=== PATIENT | male | born 1960 | race Caucasian/White ===

== ENCOUNTER → 2020-05-10 | Day surgery (SDC) | payer MEDICARE, OTHER ==
[~2020-05-10] MED LIST: ABILIFY5 M1 PO; ABILIFY5 MG PO; ASPIRIN CHEWABL81 MG PO; ASPIRIN81 MG PO; ATORVASTATIN CA80 MG PO; AUGMENTIN 875-1 EACH PO; AZITHROMYCIN250 MG PO; BACLOFEN 10MG T10 MG PO; BRILINTA90 MG PO; BUSPIRONE HCL15 MG PO; CARAFATE1 GM PO; CEFDINIR300 MG PO; CIPRO500 MG PO; CLONAZEPAM0.5 MG PO; FLEXERIL5 MG PO; FLOMAX 0.4 MG0.4 MG PO; FLOMAX0.4 MG PO; IBUPROFEN600 MG PO; IBUPROFEN800 MG PO; ISOSORBIDE MONO60 M1 PO; ISOSORBIDE MONO60 MG PO; LOPRESSOR25 MG PO; MEDROL 4MG DOSEP4 MG PO; MOTRIN600 MG PO; NITROQUIK SL0.4 MG SL; NORCO 5-325 TA1 EACH PO; ONDANSETRON ODT4 MG SL; PLAVIX75 MG PO; PROTONIX 40MG T40 MG PO; PYRIDIUM200 M1 PO; PYRIDIUM200 MG PO; RANEXA500 MG PO; RANOLAZINE ER500 MG PO; RISPERIDOL PO; TAMSULOSIN HCL0.4 MG PO; TESSALON PERLE100 MG PO; TRAZODONE 100M100 MG PO; TRAZODONE 50MG50 MG PO; VENTOLIN HFA IN18 GM INH; VIBRAMYCIN100 MG PO; ZOFRAN4 M1 PO; ZOFRAN4 MG PO; ZOFRAN8 MG PO
== END | disposition home or self-care (01) ==
LOC: FAS 07:48
DX: Z12.11 Encounter for screening for malignant neoplasm of colon (principal); D12.2 Benign neoplasm of ascending colon; D12.3 Benign neoplasm of transverse colon; D12.5 Benign neoplasm of sigmoid colon; K31.89 Other diseases of stomach and duodenum; K29.80 Duodenitis without bleeding; K21.9 Gastro-esophageal reflux disease without esophagitis; F42.9 Obsessive-compulsive disorder, unspecified; F32.9 Major depressive disorder, single episode, unspecified; F41.9 Anxiety disorder, unspecified; J44.9 Chronic obstructive pulmonary disease, unspecified; I10 Essential (primary) hypertension; I25.10 Atherosclerotic heart disease of native coronary artery without angina pectoris; I25.2 Old myocardial infarction; E78.5 Hyperlipidemia, unspecified; Z86.010 Personal history of colon polyps; Z87.891 Personal history of nicotine dependence; Z79.02 Long term (current) use of antithrombotics/antiplatelets; Z79.82 Long term (current) use of aspirin; Z79.899 Other long term (current) drug therapy; Z95.5 Presence of coronary angioplasty implant and graft
CPT/HCPCS: 88305; 93005; J2405; J2550; J2704; J7120

== ENCOUNTER 2020-07-01 12:33 | Emergency (ER) | payer MEDICARE, OTHER ==
[~2020-07-01 12:33] MED LIST changes: -AUGMENTIN 875-1 EACH PO; -BACLOFEN 10MG T10 MG PO; -CIPRO500 MG PO; -ISOSORBIDE MONO60 M1 PO; -PYRIDIUM200 M1 PO; -PYRIDIUM200 MG PO; -ZOFRAN4 M1 PO
[2020-07-01 13:05] LABS: BASOPHIL 1.1 % (0-2); EOSINOPHIL 3.9 % (0-5); HCT 49.2 % (42.0-52.0); HGB 16.5 g/dl (13.2-18.0); MCH 33.3 pg (25.0-31.0); MCHC 33.5 g/dL (32.0-36.0); MCV 99.4 fL (78.0-100.0); MONOCYTE 7.2 % (0-12); MPV 9.3 fL (6.0-9.5); NEUTROPHIL 69.6 % (41-80); NRBC 0; PLT 169 K/uL (150-400); RBC 4.95 M/uL (4.70-6.00); RDW 12.2 % (11.5-14.0); WBC 8.4 K/uL (4.0-10.5)
[2020-07-01 13:18] LABS: INR 0.88 (0.9-1.2); PROTHROMBIN TIME 11.3 SECONDS (11.4-13.6); PTT 26.1 SECONDS (22.2-34.7)
[2020-07-01 13:32] LABS: ALBUMIN 3.8 g/dL (3.4-5.0); BILIRUBIN - TOTAL 0.3 mg/dL (0.2-1.0); BUN/CREAT RATIO (CALC) 9.4 RATIO; CREATININE 1.17 mg/dL (0.67-1.17); GLOBULIN (CALCULATION) 2.7 g/dL; POTASSIUM 4.4 mmol/L (3.5-5.1); TOTAL PROTEIN 6.5 g/dL (6.4-8.2)
[2020-07-01 14:13] LABS: BILIRUBIN NEGATIVE (NEGATIVE); BLOOD NEGATIVE Ery/uL (NEGATIVE); CLARITY CLEAR (CLEAR); COLOR YELLOW (YELLOW); GLUCOSE (U) NORMAL (NORMAL); LEUKOCYTES TRACE Leu/uL (NEGATIVE); NITRITE NEGATIVE (NEGATIVE); PROTEIN NEGATIVE (NEGATIVE); UROBILINOGEN 0.2 mg/dL (0.2-1.0)
[2020-07-01 14:21] LABS: SQUAMOUS EPITHELIAL CELLS RARE; URINARY RBC RARE
[2020-11-27] MEDS ORDERED: NORCO 5-325 TA1 EACH PO (16:29)
[2020-11-28] MEDS ORDERED: LOPRESSOR25 MG PO (11:39)
== END 2020-07-01 16:10 | disposition home or self-care (01) ==
LOC: FER 12:33
PROVIDERS: Emergency Medicine; Nurse Practitioner Family
DX: R07.89 Other chest pain (principal); R06.02 Shortness of breath; R05 Cough; R11.0 Nausea; R42 Dizziness and giddiness; I10 Essential (primary) hypertension; E03.9 Hypothyroidism, unspecified; F17.210 Nicotine dependence, cigarettes, uncomplicated; Z79.899 Other long term (current) drug therapy
CPT/HCPCS: 36415; 71045; 80053; 81001; 84484; 85025; 85610; 85730; 87088; 93005; J2405; J7030

== ENCOUNTER 2020-09-15 14:33 | Emergency (ER) | payer MEDICARE, OTHER ==
[2020-09-15 16:09] LABS: BASOPHIL 0.7 % (0-2); EOSINOPHIL 1.3 % (0-5); HCT 48.7 % (42.0-52.0); MCH 32.3 pg (25.0-31.0); MCHC 34.9 g/dL (32.0-36.0); MCV 92.6 fL (78.0-100.0); MONOCYTE 7.7 % (0-12); MPV 9.5 fL (6.0-9.5); NEUTROPHIL 74.9 % (41-80); NRBC 0; PLT 185 K/uL (150-400); RBC 5.26 M/uL (4.70-6.00); RDW 12.8 % (11.5-14.0); WBC 9.8 K/uL (4.0-10.5)
[2020-09-15 16:12] LABS: BILIRUBIN NEGATIVE (NEGATIVE); BLOOD NEGATIVE Ery/uL (NEGATIVE); CLARITY CLEAR (CLEAR); COLOR YELLOW (YELLOW); GLUCOSE (U) NORMAL (NORMAL); LEUKOCYTES 1+ Leu/uL (NEGATIVE); NITRITE NEGATIVE (NEGATIVE); PROTEIN NEGATIVE (NEGATIVE); UROBILINOGEN 0.2 mg/dL (0.2-1.0)
[2020-09-15 16:27] LABS: BUN/CREAT RATIO (CALC) 13.1 RATIO; CREATININE 1.22 mg/dL (0.67-1.17); POTASSIUM 4.5 mmol/L (3.5-5.1)
[2020-09-15 16:30] LABS: AMORPHOUS URATES CRYSTALS TRACE; BACTERIA TRACE; SQUAMOUS EPITHELIAL CELLS RARE
[2020-09-15] MEDS ORDERED: VIBRAMYCIN100 MG PO (17:32)
[2020-09-15] MEDS ORDERED: ZOFRAN4 M1 PO (17:32)
[2020-11-27] MEDS ORDERED: NORCO 5-325 TA1 EACH PO (16:29)
[2020-11-28] MEDS ORDERED: LOPRESSOR25 MG PO (11:39)
== END 2020-09-15 18:00 | disposition home or self-care (01) ==
LOC: FER 14:33
PROVIDERS: Nurse Practitioner Family
DX: J18.9 Pneumonia, unspecified organism (principal); F17.210 Nicotine dependence, cigarettes, uncomplicated; Z79.899 Other long term (current) drug therapy
CPT/HCPCS: 36415; 71046; 80048; 81001; 85025; 87088; 93005; J0696; J1885; J2405; J7030

== ENCOUNTER 2020-09-28 11:12 | Emergency (ER) | payer MEDICARE, OTHER ==
[~2020-09-28 11:12] MED LIST changes: +ZOFRAN4 M1 PO
[2020-09-28 12:40] LABS: BASOPHIL 0.5 % (0-2); HCT 49.6 % (42.0-52.0); HGB 17.6 g/dl (13.2-18.0); LYMPHOCYTE 10.8 % (15-48); MCH 32.2 pg (25.0-31.0); MCHC 35.5 g/dL (32.0-36.0); MCV 90.7 fL (78.0-100.0); MONOCYTE 7.3 % (0-12); NEUTROPHIL 80.1 % (41-80); NRBC 0; PLT 249 K/uL (150-400); RBC 5.47 M/uL (4.70-6.00); RDW 12.9 % (11.5-14.0); WBC 14.6 K/uL (4.0-10.5)
[2020-09-28 12:47] LABS: ALBUMIN 4.2 g/dL (3.4-5.0); BILIRUBIN - TOTAL 1.2 mg/dL (0.2-1.0); BUN/CREAT RATIO (CALC) 18.9 RATIO; CREATININE 1.32 mg/dL (0.67-1.17); GLOBULIN (CALCULATION) 2.9 g/dL; POTASSIUM 4.5 mmol/L (3.5-5.1); TOTAL PROTEIN 7.1 g/dL (6.4-8.2)
[2020-11-27] MEDS ORDERED: NORCO 5-325 TA1 EACH PO (16:29)
[2020-11-28] MEDS ORDERED: LOPRESSOR25 MG PO (11:39)
== END 2020-09-28 14:35 | disposition home or self-care (01) ==
LOC: FER 11:12
PROVIDERS: Emergency Medicine
DX: F41.9 Anxiety disorder, unspecified (principal); R07.89 Other chest pain; I25.2 Old myocardial infarction; J44.9 Chronic obstructive pulmonary disease, unspecified; F17.210 Nicotine dependence, cigarettes, uncomplicated; Z95.5 Presence of coronary angioplasty implant and graft
CPT/HCPCS: 36415; 71045; 80053; 84484; 85025; 93005; J2060

== ENCOUNTER 2020-09-30 13:41 | Emergency (ER) | payer MEDICARE, OTHER ==
[2020-09-30 14:27] LABS: BILIRUBIN NEGATIVE (NEGATIVE); BLOOD 1+ Ery/uL (NEGATIVE); CLARITY CLEAR (CLEAR); COLOR YELLOW (YELLOW); GLUCOSE (U) NORMAL (NORMAL); LEUKOCYTES 2+ Leu/uL (NEGATIVE); NITRITE NEGATIVE (NEGATIVE); PROTEIN TRACE (LOW) mg/dL (NEGATIVE); pH 6.5 (5.0-9.0)
[2020-09-30 14:59] LABS: BASOPHIL 0.9 % (0-2); EOSINOPHIL 1.7 % (0-5); HCT 48.6 % (42.0-52.0); HGB 17.6 g/dl (13.2-18.0); LYMPHOCYTE 20.8 % (15-48); MCH 32.4 pg (25.0-31.0); MCHC 36.2 g/dL (32.0-36.0); MCV 89.3 fL (78.0-100.0); MONOCYTE 7.9 % (0-12); MPV 9.7 fL (6.0-9.5); NEUTROPHIL 68.4 % (41-80); NRBC 0; PLT 213 K/uL (150-400); RBC 5.44 M/uL (4.70-6.00); RDW 12.9 % (11.5-14.0); WBC 9.9 K/uL (4.0-10.5)
[2020-09-30 15:28] LABS: ALBUMIN 4.3 g/dL (3.4-5.0); BILIRUBIN - TOTAL 1.1 mg/dL (0.2-1.0); BUN/CREAT RATIO (CALC) 13.1 RATIO; CREATININE 1.3 mg/dL (0.67-1.17); GLOBULIN (CALCULATION) 2.6 g/dL; POTASSIUM 3.8 mmol/L (3.5-5.1); TOTAL PROTEIN 6.9 g/dL (6.4-8.2)
[2020-09-30] MEDS ORDERED: PYRIDIUM200 MG PO (16:06)
[2020-09-30] MEDS ORDERED: AUGMENTIN 875-1 EACH PO (16:06)
[2020-11-27] MEDS ORDERED: NORCO 5-325 TA1 EACH PO (16:29)
[2020-11-28] MEDS ORDERED: LOPRESSOR25 MG PO (11:39)
== END 2020-09-30 16:24 | disposition home or self-care (01) ==
LOC: FER 13:41
PROVIDERS: Nurse Practitioner Family
DX: N39.0 Urinary tract infection, site not specified (principal); I10 Essential (primary) hypertension; J44.9 Chronic obstructive pulmonary disease, unspecified; F17.210 Nicotine dependence, cigarettes, uncomplicated
CPT/HCPCS: 36415; 80053; 81001; 85025; 87088; 99284; J7030

== ENCOUNTER 2020-10-04 18:39 | Emergency (ER) | payer MEDICARE, OTHER ==
[~2020-10-04 18:39] MED LIST changes: +AUGMENTIN 875-1 EACH PO; +PYRIDIUM200 MG PO
[2020-10-04 19:59] LABS: BASOPHIL 0.7 % (0-2); EOSINOPHIL 2.3 % (0-5); HCT 49.1 % (42.0-52.0); HGB 17.4 g/dl (13.2-18.0); LYMPHOCYTE 19.3 % (15-48); MCH 32.5 pg (25.0-31.0); MCHC 35.4 g/dL (32.0-36.0); MCV 91.6 fL (78.0-100.0); MONOCYTE 8.8 % (0-12); MPV 9.6 fL (6.0-9.5); NEUTROPHIL 68.7 % (41-80); NRBC 0; PLT 224 K/uL (150-400); RBC 5.36 M/uL (4.70-6.00); RDW 12.9 % (11.5-14.0); WBC 11.6 K/uL (4.0-10.5)
[2020-10-04 20:22] LABS: ALBUMIN 3.9 g/dL (3.4-5.0); BILIRUBIN - TOTAL 0.7 mg/dL (0.2-1.0); BUN/CREAT RATIO (CALC) 10.5 RATIO; CREATININE 1.33 mg/dL (0.67-1.17); GLOBULIN (CALCULATION) 3.1 g/dL; POTASSIUM 3.7 mmol/L (3.5-5.1)
[2020-10-04] MEDS ORDERED: FLOMAX0.4 MG PO (22:08)
[2020-11-27] MEDS ORDERED: NORCO 5-325 TA1 EACH PO (16:29)
[2020-11-28] MEDS ORDERED: LOPRESSOR25 MG PO (11:39)
== END 2020-10-04 22:27 | disposition home or self-care (01) ==
LOC: FER 18:39
PROVIDERS: Emergency Medicine
DX: N40.1 Benign prostatic hyperplasia with lower urinary tract symptoms (principal); I10 Essential (primary) hypertension; J44.9 Chronic obstructive pulmonary disease, unspecified; F17.200 Nicotine dependence, unspecified, uncomplicated
CPT/HCPCS: 36415; 80053; 83690; 85025; J1885; J2405; Q9967

== ENCOUNTER 2020-10-08 22:16 | Day surgery (SDCO) | payer MEDICARE, OTHER ==
[~2020-10-08] VITALS: Ht 188 cm; Wt 90.0 kg
[2020-10-08 22:55] LABS: EOSINOPHIL 2.9 % (0-5); HCT 48.2 % (42.0-52.0); LYMPHOCYTE 21.3 % (15-48); MCH 32.5 pg (25.0-31.0); MCHC 35.3 g/dL (32.0-36.0); MCV 92.2 fL (78.0-100.0); MONOCYTE 8.7 % (0-12); MPV 9.6 fL (6.0-9.5); NEUTROPHIL 65.9 % (41-80); NRBC 0; PLT 199 K/uL (150-400); RBC 5.23 M/uL (4.70-6.00); RDW 12.7 % (11.5-14.0); WBC 11.5 K/uL (4.0-10.5)
[2020-10-08 23:14] LABS: INR 0.96 (0.9-1.2); PROTHROMBIN TIME 12.1 SECONDS (11.4-13.6)
[2020-10-08 23:15] LABS: D-DIMER 0.37 ug/mLFEU (0.00-0.41)
[2020-10-08 23:19] LABS: ALBUMIN 3.6 g/dL (3.4-5.0); BILIRUBIN - TOTAL 0.4 mg/dL (0.2-1.0); BUN/CREAT RATIO (CALC) 14.1 RATIO; CREATININE 1.42 mg/dL (0.67-1.17); GLOBULIN (CALCULATION) 2.9 g/dL; TOTAL PROTEIN 6.5 g/dL (6.4-8.2)
[2020-10-08 23:25] LABS: PRO-BNP 108 pg/mL (<125)
[2020-10-09 02:25] LABS: CORONAVIRUS 2019 SARS-COV-2 NEGATIVE (NEGATIVE); INFLUENZA A NAA NEGATIVE (NEGATIVE)
[2020-10-09 07:10] LABS: BASOPHIL 1.1 % (0-2); EOSINOPHIL 4.2 % (0-5); HCT 45.3 % (42.0-52.0); HGB 15.9 g/dl (13.2-18.0); LYMPHOCYTE 28.4 % (15-48); MCH 32.9 pg (25.0-31.0); MCHC 35.1 g/dL (32.0-36.0); MCV 93.6 fL (78.0-100.0); MONOCYTE 7.5 % (0-12); MPV 9.5 fL (6.0-9.5); NEUTROPHIL 58.6 % (41-80); NRBC 0; PLT 161 K/uL (150-400); RBC 4.84 M/uL (4.70-6.00); RDW 12.6 % (11.5-14.0); WBC 8.6 K/uL (4.0-10.5)
[2020-10-09 07:33] LABS: ALBUMIN 3.2 g/dL (3.4-5.0); BILIRUBIN - TOTAL 0.4 mg/dL (0.2-1.0); BUN/CREAT RATIO (CALC) 12.1 RATIO; CREATININE 1.24 mg/dL (0.67-1.17); GLOBULIN (CALCULATION) 2.3 g/dL; POTASSIUM 4.6 mmol/L (3.5-5.1); TOTAL PROTEIN 5.5 g/dL (6.4-8.2)
[2020-10-10 05:27] LABS: BASOPHIL 1.3 % (0-2); EOSINOPHIL 3.3 % (0-5); HCT 47.2 % (42.0-52.0); HGB 16.4 g/dl (13.2-18.0); LYMPHOCYTE 24.9 % (15-48); MCH 32.5 pg (25.0-31.0); MCHC 34.7 g/dL (32.0-36.0); MCV 93.5 fL (78.0-100.0); MONOCYTE 8.8 % (0-12); MPV 9.6 fL (6.0-9.5); NEUTROPHIL 61.4 % (41-80); NRBC 0; PLT 158 K/uL (150-400); RBC 5.05 M/uL (4.70-6.00); RDW 12.7 % (11.5-14.0); WBC 7.1 K/uL (4.0-10.5)
[2020-10-10 05:45] LABS: CREATININE 1.17 mg/dL (0.67-1.17); POTASSIUM 4.7 mmol/L (3.5-5.1)
[2020-10-10] MEDS ORDERED: ISOSORBIDE MONO60 M1 PO (10:15)
[2020-10-10] MEDS ORDERED: PROTONIX 40MG T40 MG PO (10:15)
[2020-10-10] MEDS ORDERED: BACLOFEN 10MG T10 MG PO (10:15)
[2020-10-10] MEDS ORDERED: PLAVIX75 MG PO (10:15)
[2020-11-27] MEDS ORDERED: NORCO 5-325 TA1 EACH PO (16:29)
[2020-11-28] MEDS ORDERED: LOPRESSOR25 MG PO (11:39)
== END 2020-10-10 10:45 | disposition home or self-care (01) ==
LOC: FER 22:16 → FTCU 10-09 01:18 → FMS 10-09 13:07
PROVIDERS: Emergency Medicine Emergency Medical Services; Internal Medicine; Nurse Practitioner; ADMIT Hospitalist
DX: I25.119 Atherosclerotic heart disease of native coronary artery with unspecified angina pectoris (principal); K29.70 Gastritis, unspecified, without bleeding; F41.0 Panic disorder [episodic paroxysmal anxiety]; I11.9 Hypertensive heart disease without heart failure; E78.5 Hyperlipidemia, unspecified; J44.9 Chronic obstructive pulmonary disease, unspecified; F17.210 Nicotine dependence, cigarettes, uncomplicated; K21.9 Gastro-esophageal reflux disease without esophagitis; F32.9 Major depressive disorder, single episode, unspecified; Z95.5 Presence of coronary angioplasty implant and graft; Z79.02 Long term (current) use of antithrombotics/antiplatelets; Z79.82 Long term (current) use of aspirin; Z79.899 Other long term (current) drug therapy; Z20.822 Contact with and (suspected) exposure to COVID-19
CPT/HCPCS: 36415; 71045; 80048; 80053; 83690; 83880; 84484; 85025; 85379; 85610; 85730; 93005; 94010; 94762; G0378; J1650; J2270; J2405; J7030; U0002

== ENCOUNTER 2020-10-18 13:06 | Emergency (ER) | payer MEDICARE, OTHER ==
[~2020-10-18 13:06] MED LIST changes: +BACLOFEN 10MG T10 MG PO; +ISOSORBIDE MONO60 M1 PO
[2020-10-18 13:33] LABS: BASOPHIL 0.3 % (0-2); EOSINOPHIL 1.7 % (0-5); HCT 44.5 % (42.0-52.0); HGB 15.4 g/dl (13.2-18.0); LYMPHOCYTE 11.2 % (15-48); MCH 32.1 pg (25.0-31.0); MCHC 34.6 g/dL (32.0-36.0); MCV 92.7 fL (78.0-100.0); MONOCYTE 7.7 % (0-12); MPV 9.1 fL (6.0-9.5); NEUTROPHIL 78.7 % (41-80); NRBC 0; PLT 219 K/uL (150-400); RDW 12.8 % (11.5-14.0); WBC 11.4 K/uL (4.0-10.5)
[2020-10-18 13:46] LABS: ALBUMIN 3.5 g/dL (3.4-5.0); BILIRUBIN - TOTAL 0.5 mg/dL (0.2-1.0); BUN/CREAT RATIO (CALC) 14.2 RATIO; CREATININE 1.41 mg/dL (0.67-1.17); GLOBULIN (CALCULATION) 2.8 g/dL; POTASSIUM 4.2 mmol/L (3.5-5.1); TOTAL PROTEIN 6.3 g/dL (6.4-8.2)
[2020-11-27] MEDS ORDERED: NORCO 5-325 TA1 EACH PO (16:29)
[2020-11-28] MEDS ORDERED: LOPRESSOR25 MG PO (11:39)
== END 2020-10-18 14:55 | disposition home or self-care (01) ==
LOC: FER 13:06
PROVIDERS: Emergency Medicine
DX: R07.9 Chest pain, unspecified (principal); I25.10 Atherosclerotic heart disease of native coronary artery without angina pectoris; F17.200 Nicotine dependence, unspecified, uncomplicated; Z95.5 Presence of coronary angioplasty implant and graft
CPT/HCPCS: 36415; 71045; 80053; 84484; 85025; 93005

== ENCOUNTER 2020-11-22 15:18 | Emergency (ER) | payer MEDICARE, OTHER ==
[2020-11-22 18:17] LABS: BASOPHIL 0.9 % (0-2); EOSINOPHIL 3.5 % (0-5); HCT 48.6 % (42.0-52.0); HGB 16.9 g/dl (13.2-18.0); LYMPHOCYTE 19.5 % (15-48); MCH 31.3 pg (25.0-31.0); MCHC 34.8 g/dL (32.0-36.0); MONOCYTE 6.6 % (0-12); MPV 8.6 fL (6.0-9.5); NEUTROPHIL 69.2 % (41-80); NRBC 0; PLT 190 K/uL (150-400); RDW 13.1 % (11.5-14.0); WBC 8.9 K/uL (4.0-10.5)
[2020-11-22 18:28] LABS: INR 0.98 (0.9-1.2); PROTHROMBIN TIME 12.4 SECONDS (11.8-13.4); PTT 26.3 SECONDS (24.4-34.7)
[2020-11-22 18:38] LABS: ALBUMIN 3.8 g/dL (3.4-5.0); BILIRUBIN - TOTAL 1.1 mg/dL (0.2-1.0); BUN/CREAT RATIO (CALC) 7.9 RATIO; CREATININE 1.14 mg/dL (0.67-1.17); GLOBULIN (CALCULATION) 3.1 g/dL; POTASSIUM 3.9 mmol/L (3.5-5.1); TOTAL PROTEIN 6.9 g/dL (6.4-8.2)
[2020-11-22 20:25] LABS: BILIRUBIN NEGATIVE (NEGATIVE); BLOOD 1+ Ery/uL (NEGATIVE); CLARITY CLEAR (CLEAR); COLOR YELLOW (YELLOW); GLUCOSE (U) NORMAL (NORMAL); LEUKOCYTES 1+ Leu/uL (NEGATIVE); NITRITE NEGATIVE (NEGATIVE); PROTEIN NEGATIVE (NEGATIVE); SPECIFIC GRAVITY 1.015 (1.001-1.030)
[2020-11-22 20:28] LABS: BACTERIA TRACE; CALCIUM OXALATE CRYSTALS MODERATE
[2020-11-22] MEDS ORDERED: VIBRAMYCIN100 MG PO (21:25)
[2020-11-23] MEDS ORDERED: CIPRO500 MG PO (16:55)
[2020-11-23] MEDS ORDERED: PYRIDIUM200 M1 PO (16:55)
[2020-11-27] MEDS ORDERED: NORCO 5-325 TA1 EACH PO (16:29)
[2020-11-28] MEDS ORDERED: LOPRESSOR25 MG PO (11:39)
== END 2020-11-22 21:25 | disposition home or self-care (01) ==
LOC: FER 15:18
PROVIDERS: Emergency Medicine Emergency Medical Services; Nurse Practitioner Family
DX: K21.9 Gastro-esophageal reflux disease without esophagitis (principal); F41.9 Anxiety disorder, unspecified; R07.89 Other chest pain; R00.0 Tachycardia, unspecified; R10.13 Epigastric pain; I25.2 Old myocardial infarction; I10 Essential (primary) hypertension; J44.9 Chronic obstructive pulmonary disease, unspecified; F17.210 Nicotine dependence, cigarettes, uncomplicated
CPT/HCPCS: 36415; 71045; 80053; 81001; 84484; 85025; 85610; 85730; 87088; 93005; 96372; J2060; J7030

== ENCOUNTER 2020-11-23 14:26 | Emergency (ER) | payer MEDICARE, OTHER ==
[2020-11-23 15:55] LABS: BILIRUBIN 1+ mg/dL (NEGATIVE); BLOOD TRACE-LYSED Ery/uL (NEGATIVE); CLARITY CLEAR (CLEAR); COLOR YELLOW (YELLOW); GLUCOSE (U) NORMAL (NORMAL); LEUKOCYTES 2+ Leu/uL (NEGATIVE); NITRITE NEGATIVE (NEGATIVE); PROTEIN TRACE (LOW) mg/dL (NEGATIVE); pH 7.5 (5.0-9.0)
[2020-11-23 16:09] LABS: BACTERIA TRACE; URINARY RBC RARE
[2020-11-23] MEDS ORDERED: PYRIDIUM200 M1 PO (16:55)
[2020-11-23] MEDS ORDERED: CIPRO500 MG PO (16:55)
[2020-11-27] MEDS ORDERED: NORCO 5-325 TA1 EACH PO (16:29)
[2020-11-28] MEDS ORDERED: LOPRESSOR25 MG PO (11:39)
== END 2020-11-23 17:09 | disposition home or self-care (01) ==
LOC: FER 14:26
PROVIDERS: Emergency Medicine
DX: N30.90 Cystitis, unspecified without hematuria (principal); J44.9 Chronic obstructive pulmonary disease, unspecified; F17.210 Nicotine dependence, cigarettes, uncomplicated; Z95.5 Presence of coronary angioplasty implant and graft; Z98.890 Other specified postprocedural states
CPT/HCPCS: 81001; 87088; 99283; J1885

== ENCOUNTER 2020-11-26 09:42 | Emergency (ER) | payer MEDICARE, OTHER ==
[~2020-11-26 09:42] MED LIST changes: +CIPRO500 MG PO; +PYRIDIUM200 M1 PO
[2020-11-26 10:11] LABS: BASOPHIL 0.8 % (0-2); EOSINOPHIL 2.1 % (0-5); HCT 50.2 % (42.0-52.0); HGB 17.6 g/dl (13.2-18.0); LYMPHOCYTE 28.9 % (15-48); MCH 31.9 pg (25.0-31.0); MCHC 35.1 g/dL (32.0-36.0); MCV 91.1 fL (78.0-100.0); MONOCYTE 8.8 % (0-12); MPV 8.7 fL (6.0-9.5); NEUTROPHIL 58.9 % (41-80); NRBC 0; PLT 231 K/uL (150-400); RBC 5.51 M/uL (4.70-6.00); WBC 9.7 K/uL (4.0-10.5)
[2020-11-26 10:36] LABS: ALBUMIN 3.7 g/dL (3.4-5.0); ALKALINE PHOSHATASE 89 U/L (46-116); ALT 73 U/L (16-63); AST 42 U/L (15-37); BILIRUBIN - TOTAL 0.7 mg/dL (0.2-1.0); BUN 6 mg/dL (7-18); BUN/CREAT RATIO (CALC) 5.1 RATIO; CHLORIDE 107 mmol/L (98-107); CO2 (BICARBONATE) 21 mmol/L (21-32); CREATININE 1.18 mg/dL (0.67-1.17); GLOBULIN (CALCULATION) 3.2 g/dL; GLUCOSE 110 mg/dL (74-106); POTASSIUM 3.9 mmol/L (3.5-5.1); TOTAL PROTEIN 6.9 g/dL (6.4-8.2)
[2020-11-26 10:39] LABS: ACETAMINOPHEN (TYLENOL) < 2.0 ug/mL (10.0-30.0)
[2020-11-27] MEDS ORDERED: NORCO 5-325 TA1 EACH PO (16:29)
[2020-11-28] MEDS ORDERED: LOPRESSOR25 MG PO (11:39)
== END 2020-11-26 12:10 | disposition left against medical advice (07) ==
LOC: FER 09:42
PROVIDERS: Emergency Medicine
DX: F10.129 Alcohol abuse with intoxication, unspecified (principal); I20.0 Unstable angina; S00.31XA Abrasion of nose, initial encounter; S00.81XA Abrasion of other part of head, initial encounter; J44.9 Chronic obstructive pulmonary disease, unspecified; F17.210 Nicotine dependence, cigarettes, uncomplicated; Y90.7 Blood alcohol level of 200-239 mg/100 ml; X58.XXXA Exposure to other specified factors, initial encounter; Z87.19 Personal history of other diseases of the digestive system; Z53.8 Procedure and treatment not carried out for other reasons
CPT/HCPCS: 36415; 70450; 80053; 84484; 85025; 93005; G0480; J7030

== ENCOUNTER 2021-02-04 21:09 | Emergency (ER) | payer MEDICARE, OTHER ==
[2021-02-04 21:50] LABS: BASOPHIL 0.8 % (0-2); EOSINOPHIL 2.7 % (0-5); HCT 51.1 % (42.0-52.0); HGB 18.5 g/dl (13.2-18.0); LYMPHOCYTE 21.3 % (15-48); MCH 33.3 pg (25.0-31.0); MCHC 36.2 g/dL (32.0-36.0); MCV 91.9 fL (78.0-100.0); MONOCYTE 9.9 % (0-12); MPV 8.9 fL (6.0-9.5); NEUTROPHIL 65.2 % (41-80); NRBC 0; PLT 173 K/uL (150-400); RBC 5.56 M/uL (4.70-6.00); RDW 13.5 % (11.5-14.0); WBC 7.8 K/uL (4.0-10.5)
[2021-02-04 21:59] LABS: INR 0.93 (0.9-1.2); PROTHROMBIN TIME 11.9 SECONDS (11.8-13.4); PTT 23.7 SECONDS (24.4-34.7)
[2021-02-04 22:01] LABS: D-DIMER 0.42 ug/mLFEU (0.00-0.41)
[2021-02-04 22:06] LABS: ALBUMIN 3.9 g/dL (3.4-5.0); BILIRUBIN - TOTAL 1.3 mg/dL (0.2-1.0); CREATININE 1.12 mg/dL (0.67-1.17); POTASSIUM 3.5 mmol/L (3.5-5.1); TOTAL PROTEIN 6.9 g/dL (6.4-8.2)
[2021-02-05] MEDS ORDERED: TOPROL XL 50 MG50 MG PO (00:04)
[2021-02-05] MEDS ORDERED: PREDNISONE 20MG20 MG PO (00:04)
[2021-02-05] MEDS ORDERED: NORCO 5-325 TA1 EACH PO (00:04)
== END 2021-02-05 00:20 | disposition home or self-care (01) ==
LOC: FER 21:09
PROVIDERS: Emergency Medicine Emergency Medical Services
DX: R07.89 Other chest pain (principal); I10 Essential (primary) hypertension; I25.2 Old myocardial infarction; F17.210 Nicotine dependence, cigarettes, uncomplicated
CPT/HCPCS: 36415; 71045; 71275; 80053; 83690; 84484; 85025; 85379; 85610; 85730; 93005; J1885; J2270; J2405; J3490; J7030; Q9967

== ENCOUNTER 2021-03-20 12:58 | Emergency (ER) | payer MEDICARE, OTHER ==
[~2021-03-20 12:58] MED LIST changes: +PREDNISONE 20MG20 MG PO; +TOPROL XL 50 MG50 MG PO
[2021-03-20 13:15] LABS: BASOPHIL 0.7 % (0-2); EOSINOPHIL 1.6 % (0-5); HCT 48.7 % (42.0-52.0); HGB 17.8 g/dl (13.2-18.0); LYMPHOCYTE 19.9 % (15-48); MCH 34.2 pg (25.0-31.0); MCHC 36.6 g/dL (32.0-36.0); MCV 93.7 fL (78.0-100.0); MPV 9.2 fL (6.0-9.5); NEUTROPHIL 68.7 % (41-80); NRBC 0; PLT 163 K/uL (150-400); RDW 13.8 % (11.5-14.0)
[2021-03-20 13:37] LABS: ALBUMIN 4.2 g/dL (3.4-5.0); BUN/CREAT RATIO (CALC) 8.2 RATIO; CREATININE 1.1 mg/dL (0.67-1.17); GLOBULIN (CALCULATION) 2.6 g/dL; POTASSIUM 3.7 mmol/L (3.5-5.1); TOTAL PROTEIN 6.8 g/dL (6.4-8.2)
[2021-03-20] MEDS ORDERED: NITROQUIK SL0.4 MG SL (17:11)
== END 2021-03-20 17:38 | disposition home or self-care (01) ==
LOC: FER 12:58
PROVIDERS: Internal Medicine
DX: I25.118 Atherosclerotic heart disease of native coronary artery with other forms of angina pectoris (principal); I10 Essential (primary) hypertension; I25.2 Old myocardial infarction; F17.210 Nicotine dependence, cigarettes, uncomplicated; Z79.82 Long term (current) use of aspirin; Z79.899 Other long term (current) drug therapy
CPT/HCPCS: 36415; 71045; 71275; 80053; 84484; 85025; 93005; J2270; J2550; Q9967

== ENCOUNTER 2021-03-24 01:08 | Emergency (ER) | payer MEDICARE, OTHER ==
[2021-03-24 01:38] LABS: BASOPHIL 0.7 % (0-2); HCT 52.5 % (42.0-52.0); HGB 18.4 g/dl (13.2-18.0); LYMPHOCYTE 29.6 % (15-48); MCH 33.9 pg (25.0-31.0); MCV 96.9 fL (78.0-100.0); MONOCYTE 6.8 % (0-12); MPV 9.2 fL (6.0-9.5); NEUTROPHIL 58.5 % (41-80); NRBC 0; PLT 208 K/uL (150-400); RBC 5.42 M/uL (4.70-6.00); WBC 9.8 K/uL (4.0-10.5)
[2021-03-24 01:49] LABS: INR 0.87 (0.9-1.2); PROTHROMBIN TIME 11.3 SECONDS (11.8-13.4)
[2021-03-24 01:56] LABS: ALBUMIN 3.8 g/dL (3.4-5.0); BILIRUBIN - TOTAL 0.6 mg/dL (0.2-1.0); BUN/CREAT RATIO (CALC) 7.7 RATIO; CREATININE 1.17 mg/dL (0.67-1.17); GLOBULIN (CALCULATION) 2.6 g/dL; POTASSIUM 3.6 mmol/L (3.5-5.1); TOTAL PROTEIN 6.4 g/dL (6.4-8.2)
[2021-03-24] MEDS ORDERED: CARAFATE1 GM PO (05:12)
== END 2021-03-24 06:10 | disposition home or self-care (01) ==
LOC: FER 01:08
PROVIDERS: Emergency Medicine Emergency Medical Services
DX: R10.13 Epigastric pain (principal); I25.2 Old myocardial infarction; I10 Essential (primary) hypertension; F17.210 Nicotine dependence, cigarettes, uncomplicated
CPT/HCPCS: 36415; 71045; 80053; 83690; 84484; 85025; 85610; 85730; 93005; J1885; J2270; J2405

== ENCOUNTER 2021-03-28 14:51 | Day surgery (SDCO) | payer MEDICARE, OTHER ==
[~2021-03-28] VITALS: Ht 188 cm; Wt 77.3 kg
[2021-03-28 18:12] LABS: BASOPHIL 0.8 % (0-2); EOSINOPHIL 1.8 % (0-5); HCT 47.6 % (42.0-52.0); LYMPHOCYTE 20.1 % (15-48); MCH 34.3 pg (25.0-31.0); MCHC 35.7 g/dL (32.0-36.0); MONOCYTE 11.5 % (0-12); MPV 8.8 fL (6.0-9.5); NEUTROPHIL 65.7 % (41-80); NRBC 0; PLT 194 K/uL (150-400); RBC 4.96 M/uL (4.70-6.00); RDW 13.7 % (11.5-14.0); WBC 7.2 K/uL (4.0-10.5)
[2021-03-28 18:19] LABS: INR 0.93 (0.9-1.2); PROTHROMBIN TIME 11.9 SECONDS (11.8-13.4); PTT 20.4 SECONDS (24.4-34.7)
[2021-03-28 18:37] LABS: ALBUMIN 3.9 g/dL (3.4-5.0); ALKALINE PHOSHATASE 83 U/L (46-116); ALT 52 U/L (16-63); AST 15 U/L (15-37); BILIRUBIN - TOTAL 0.9 mg/dL (0.2-1.0); BUN 11 mg/dL (7-18); BUN/CREAT RATIO (CALC) 8.4 RATIO; CHLORIDE 104 mmol/L (98-107); CO2 (BICARBONATE) 27 mmol/L (21-32); CREATININE 1.31 mg/dL (0.67-1.17); GLUCOSE 85 mg/dL (74-106); POTASSIUM 3.4 mmol/L (3.5-5.1); TOTAL PROTEIN 6.9 g/dL (6.4-8.2)
[2021-03-28 18:43] LABS: CKMB 1.1 ng/mL (0.0-3.6)
--- NOTE | 2021-03-29 04:15 | NUR ---
PATIENT USES [facility], BUT IS UNSURE OF WHAT HE TAKES. MORNING RN TO CALL AND VERIFY MEDS. MD AWARE.
[2021-03-29 06:49] LABS: BASOPHIL 0.8 % (0-2); HCT 45.2 % (42.0-52.0); HGB 15.9 g/dl (13.2-18.0); LYMPHOCYTE 19.9 % (15-48); MCH 34.6 pg (25.0-31.0); MCHC 35.2 g/dL (32.0-36.0); MCV 98.3 fL (78.0-100.0); MONOCYTE 10.5 % (0-12); MPV 9.6 fL (6.0-9.5); NEUTROPHIL 65.7 % (41-80); NRBC 0; PLT 168 K/uL (150-400); RDW 13.9 % (11.5-14.0); WBC 7.5 K/uL (4.0-10.5)
[2021-03-29 07:18] LABS: ALBUMIN 3.2 g/dL (3.4-5.0); BUN/CREAT RATIO (CALC) 10.1 RATIO; CREATININE 1.19 mg/dL (0.67-1.17); GLOBULIN (CALCULATION) 2.8 g/dL; POTASSIUM 3.7 mmol/L (3.5-5.1)
[2021-03-29] MEDS ORDERED: PREDNISONE 20MG20 MG PO (09:45)
[2021-03-29] MEDS ORDERED: ZYPREXA 5MG TABL5 MG PO (09:46)
[2021-03-29] MEDS ORDERED: CELEXA20 MG PO (09:47)
[2021-03-29] MEDS ORDERED: ATARAX25 MG PO (09:47)
[2021-03-29] MEDS ORDERED: LOPRESSOR25 MG PO (09:48)
[2021-03-29] MEDS ORDERED: VIBRAMYCIN100 MG PO (09:48)
[2021-03-29] MEDS ORDERED: LIPITOR40 MG PO (09:49)
[2021-03-29] MEDS ORDERED: BUSPIRONE HCL15 MG PO (09:50)
[2021-03-29] MEDS ORDERED: ONDANSETRON ODT4 MG PO (09:50)
[2021-03-30 06:20] LABS: BASOPHIL 0.4 % (0-2); EOSINOPHIL 0.8 % (0-5); HCT 42.5 % (42.0-52.0); HGB 14.4 g/dl (13.2-18.0); LYMPHOCYTE 11.3 % (15-48); MCH 33.8 pg (25.0-31.0); MCHC 33.9 g/dL (32.0-36.0); MCV 99.8 fL (78.0-100.0); MONOCYTE 6.7 % (0-12); MPV 9.1 fL (6.0-9.5); NEUTROPHIL 80.6 % (41-80); NRBC 0; PLT 183 K/uL (150-400); RBC 4.26 M/uL (4.70-6.00); RDW 13.5 % (11.5-14.0); WBC 5.2 K/uL (4.0-10.5)
[2021-03-30 06:44] LABS: BUN/CREAT RATIO (CALC) 8.3 RATIO; CREATININE 1.32 mg/dL (0.67-1.17)
[2021-03-30] MEDS ORDERED: TOPROL XL 50 MG50 MG PO (12:42)
[2021-03-30] MEDS ORDERED: RANOLAZINE ER500 MG PO (12:42)
[2021-03-30] MEDS ORDERED: ISOSORBIDE MON120 MG PO (12:42)
[2021-03-30] MEDS ORDERED: ASPIRIN EC81 MG PO (12:42)
== END 2021-03-30 13:18 | disposition home or self-care (01) ==
LOC: FER 14:51 → FMS 20:04
PROVIDERS: Emergency Medicine; Internal Medicine; Nurse Practitioner; ADMIT Internal Medicine
DX: I25.110 Atherosclerotic heart disease of native coronary artery with unstable angina pectoris (principal); I11.0 Hypertensive heart disease with heart failure; I50.9 Heart failure, unspecified; F42.9 Obsessive-compulsive disorder, unspecified; E78.5 Hyperlipidemia, unspecified; I25.2 Old myocardial infarction; E87.6 Hypokalemia; J44.9 Chronic obstructive pulmonary disease, unspecified; F41.9 Anxiety disorder, unspecified; F32.A Depression, unspecified; K21.9 Gastro-esophageal reflux disease without esophagitis; F17.210 Nicotine dependence, cigarettes, uncomplicated; Z91.14 Patient's other noncompliance with medication regimen; Z20.822 Contact with and (suspected) exposure to COVID-19; Z95.818 Presence of other cardiac implants and grafts; Z79.82 Long term (current) use of aspirin; Z79.899 Other long term (current) drug therapy; Z82.49 Family history of ischemic heart disease and other diseases of the circulatory system
CPT/HCPCS: 36415; 71045; 80048; 80053; 82553; 84484; 85025; 85610; 85730; 93005; 94010; G0378; G0480; J2270; J2405; J7512; U0002

== ENCOUNTER 2021-04-16 16:01 | Emergency (ER) | payer MEDICARE, OTHER | END 2021-04-16 19:25 | disposition home or self-care (01) | LOC: FER 16:01 | DX: I20.9 Angina pectoris, unspecified (principal) ==

== ENCOUNTER 2021-04-19 14:07 | Emergency (ER) | payer MEDICARE, OTHER ==
[~2021-04-19 14:07] MED LIST changes: +ASPIRIN EC81 MG PO; +ATARAX25 MG PO; +CELEXA20 MG PO; +ISOSORBIDE MON120 MG PO; +LIPITOR40 MG PO; +ONDANSETRON ODT4 MG PO; +ZYPREXA 5MG TABL5 MG PO
[2021-04-19 16:08] LABS: BASOPHIL 1.4 % (0-2); EOSINOPHIL 1.7 % (0-5); HCT 49.7 % (42.0-52.0); HGB 17.5 g/dl (13.2-18.0); LYMPHOCYTE 16.6 % (15-48); MCH 34.1 pg (25.0-31.0); MCHC 35.2 g/dL (32.0-36.0); MCV 96.9 fL (78.0-100.0); MONOCYTE 6.5 % (0-12); MPV 8.8 fL (6.0-9.5); NEUTROPHIL 73.3 % (41-80); NRBC 0; PLT 213 K/uL (150-400); RBC 5.13 M/uL (4.70-6.00); RDW 12.8 % (11.5-14.0); WBC 7.9 K/uL (4.0-10.5)
[2021-04-19 16:47] LABS: CKMB 1.1 ng/mL (0.0-3.6)
[2021-04-19 16:50] LABS: BUN/CREAT RATIO (CALC) 5.2 RATIO; CREATININE 1.16 mg/dL (0.67-1.17); POTASSIUM 4.1 mmol/L (3.5-5.1)
== END 2021-04-19 18:43 | disposition home or self-care (01) ==
LOC: FER 14:07
PROVIDERS: Emergency Medicine
DX: R07.89 Other chest pain (principal); F41.1 Generalized anxiety disorder; I10 Essential (primary) hypertension; F17.210 Nicotine dependence, cigarettes, uncomplicated
CPT/HCPCS: 36415; 71045; 80048; 82553; 84484; 85025; 93005